=== PATIENT | female | born 1995 | race Caucasian/White ===

== ENCOUNTER 2019-04-19 20:30 | Emergency (ER) | payer OTHER ==
[~2019-04-19] VITALS: Ht 165.1 cm; Wt 77.0 kg
[2019-04-19 20:35] VITALS: Ht 165.1 cm; Wt 77.0 kg
[2019-04-19] MEDS ORDERED: DIPHTH/TET/ACEL PERTUSS (ADULT) 0.5 ML VIAL IM* ONE (23:00)
[2019-04-19] MEDS ORDERED: AMOX1TAB10 PO (23:02)
[2019-04-19 23:18] VITALS: BP 129/78; PULSE 78; RESP 17
--- NOTE | 2019-04-20 03:59 | ERD ---
ER Documentation Chief Complaint Chief Complaint LEFT PALM DOG BITE--KNOWN DOG WITH CURRENT VACCINATIONS HPI This is an otherwise healthy 23-year-old [id number] female presents to the ED status post dog bite to her left palm and wrist. This happened at approximately 3 PM today. She states she was bitten by her friend's dog who is up-to-date with vaccinations. She does not know when her last tetanus was. Patient sustained puncture wounds to her left hand. There is no active bleeding. She has full range of motion of her fingers. She denies any numbness or tingling. No other injuries. ROS All systems reviewed and are negative except as per history of present illness. Medications Home Meds Active Scripts Amoxicillin/Potassium Clav (Amox-Clav 875-125 mg Tablet) 875-125 mg Tab, 1 TAB PO BID for 7 Days, #14 TAB Prov:ALEXSALVADORRADHA Lam PA-C 04/19/19 PMhx/Soc Medical and Surgical Hx: pt denies Medical Hx, pt denies Surgical Hx Hx Alcohol Use: No Hx Substance Use: No Hx Tobacco Use: No Smoking Status: Never smoker Physical Exam Vitals Vital Signs Date Temp Pulse Resp B/P (MAP) Pulse Ox O2 O2 Flow FiO2 Time Delivery Rate 04/19/19 98.1 78 17 129/78 98 Room Air 23:18 (95) 04/19/19 98.3 85 17 136/66 98 20:35 (89) Physical Exam Const: No acute distress Head: Atraumatic Eyes: Normal Conjunctiva Upper Extremity -left Skin: + Small punctate puncture wounds to left palm and wrist. No laceration Compartments: Soft Motor: Full active range of motion of wrist/hand Sensation: Intact shoulder/pinky/middle finger/thumb web space Bones: Nontender wrist/hand Pulses/Perfusion: 2+ radial, Capillary refill < 2 seconds Neur: Awake and alert Psych: Normal Mood and Affect Results 24 hrs Current Medications Medications Dose Sig/Terry Start Time Status Last (Trade) Ordered Route PRN Stop Time Admin Dose Reason Admin Diphtheria/ 0.5 ml ONCE ONCE 04/19/19 DC 04/19/19 Tetanus/Acell IM* 23:00 23:12 Pertussis 04/19/19 23:01 (Adacel) Procedures/MDM ED COURSE: The patient was given tetanus update The medication was well tolerated and the patient had market improvement in symptoms. The patient remained stable throughout ED course. MEDICAL DECISION MAKING: This is a otherwise healthy 23-year-old female presents with puncture wounds to her left hand status post dog bite. Her tetanus was updated. There is no evidence of lacerations requiring repair at this time. Will treat prophylactically with oral antibiotics. Patient has no evidence of cellulitis, abscess or deep space tissue infection at this time. She is neurovascular intact. I have low suspicion for neurovascular injury, tendon injury, or foreign body. Recommended PCP follow-up this week. Strict return precautions were discussed. PRESCRIPTIONS: Augmentin SPECIALIST FOLLOW UP RECOMMENDED: None Patient has been advised to follow up with primary care in 1-2 days. Departure Diagnosis: Primary Impression: Bite by animal Condition: Stable Patient Instructions: Animal Bite, General Referrals: [facility] YOU HAVE RECEIVED A MEDICAL SCREENING EXAM AND THE RESULTS INDICATE THAT YOU DO NOT HAVE A CONDITION THAT REQUIRES URGENT TREATMENT IN THE EMERGENCY DEPARTMENT. FURTHER EVALUATION AND TREATMENT OF YOUR CONDITION CAN WAIT UNTIL YOU ARE SEEN IN YOUR DOCTORS OFFICE WITHIN THE NEXT 1-2 DAYS. IT IS YOUR RESPONSIBILITY TO MAKE AN APPOINTMENT FOR FOLOW-UP CARE. IF YOU HAVE A PRIMARY DOCTOR --you should call your primary doctor and schedule an appointment IF YOU DO NOT HAVE A PRIMARY DOCTOR YOU CAN CALL OUR PHYSICIAN REFERRAL HOTLINE AT IF YOU CAN NOT AFFORD TO SEE A PHYSICIAN YOU CAN CHOSE FROM THE FOLLOWING [facility] [address] [facility]. [facility] [address] [facility] [facility] [address] [facility] [facility] [address] [facility]. [facility] [address] [facility]. [facility]. [address] [facility] [facility] YOU HAVE RECEIVED A MEDICAL SCREENING EXAM AND THE RESULTS INDICATE THAT YOU DO NOT HAVE A CONDITION THAT REQUIRES URGENT TREATMENT IN THE EMERGENCY DEPARTMENT. FURTHER EVALUATION AND TREATMENT OF YOUR CONDITION CAN WAIT UNTIL YOU ARE SEEN IN YOUR DOCTORS OFFICE WITHIN THE NEXT 1-2 DAYS. IT IS YOUR RESPONSIBILITY TO MAKE AN APPOINTMENT FOR FOLOW-UP CARE. IF YOU HAVE A PRIMARY DOCTOR --you should call your primary doctor and schedule and appointment IF YOU DO NOT HAVE A PRIMARY DOCTOR YOU CAN CALL OUR PHYSICIAN REFERRAL HOTLINE AT . IF YOU CAN NOT AFFORD TO SEE A PHYSICIAN YOU CAN CHOSE FROM THE FOLLOWING [facility] INSTITUTIONS: [facility] [address] [place] [address] [facility] [address] [place] [address] [facility] [address] [place] [address] Additional Instructions: Call your primary care doctor TOMORROW for an appointment during the next 2-4 days and bring all the information and medications prescribed. If the symptoms get worse and your provider is unavailable, return to the Emergency Department immediately. RADHA FERMIN PA-C Apr 20, 2019 03:59
== END 2019-04-19 23:18 | disposition home or self-care (01) ==
LOC: FTE 20:30
DX: S61.432A Puncture wound without foreign body of left hand, initial encounter (principal); W54.0XXA Bitten by dog, initial encounter; Y92.9 Unspecified place or not applicable; Z23 Encounter for immunization
CPT/HCPCS: 90471; 90715; Z7502